=== PATIENT | female | born 1965 | race Caucasian/White ===

== ENCOUNTER → 2021-10-16 | Outpatient (CLI) | payer BC ==
--- NOTE | 2021-10-16 16:41 | CONS ---
CONSULTATION DATE OF SERVICE: 10/16/2021 This 55-year-old lady has been evaluated in [facility] for obstructive sleep apnea- hypopnea syndrome. HISTORY OF PRESENT ILLNESS/SLEEP-WAKE EVALUATION: The patient has had a history of obstructive sleep apnea for 12 years. She has continued treatment with her CPAP every night for the whole night; has episodes of significant bradycardia. Her sleep schedule is from 9 p.m. to 5:30 a.m. on weekdays and from 10 p.m. to 8 a.m. on weekends. Sometimes she has problems with falling asleep. No TV in bedroom, though. She sleeps on the side position. She wakes up from sleep up to 3 times with up to 2 episodes of nocturia. No history of hypnagogic hallucinations, sleep paralysis or cataplexy. She may wake up from sleep with a dry mouth and palpitations. [place] Sleepiness Scale is 7. The patient may take a nap on weekends around 2-3 p.m. but usually does not feel refreshed after a nap. She may see vivid dreams during naps. I checked the patient's CPAP unit. Pressure is 7 cm of water. Usage is 30/30 nights for more than 4 hours, average 7 hours per night. Zero leak. The patient is using small Rosalie Luna nasal pillows. Apnea-hypopnea index 2.8. PAST MEDICAL HISTORY: Positive for hyperlipidemia, allergies, acid reflux. PAST SURGICAL HISTORY: Cholecystectomy. CURRENT MEDICATIONS: Atorvastatin 20 mg once a day, Zyrtec, Flonase, ibuprofen, Motrin. SOCIAL HISTORY: Positive for smoking in the past. Alcohol consumption occasional. PHYSICAL EXAMINATION: GENERAL: Pleasant patient is in no distress. VITAL SIGNS: BP 136/84, HR 56, RR 15, height 5 feet 6 inches, weight 239.2, body mass index 38.5, temperature 97.1, oxygen saturation at room air 97%. HEENT: PERRLA, EOMI, evaluation of oropharynx showed tongue protrudes midline. Low position of soft palate; Mallampati III. NECK: Supple, no JVD. Thyroid is not palpable. LUNGS: Clear to percussion and to auscultation. Good air exchange. No wheezing or rhonchi. HEART: S1, S2 regular. No murmurs, gallops, or rubs. ABDOMEN: Soft and nontender. Bowel sounds are present. No organomegaly appreciated. EXTREMITIES: No clubbing or cyanosis. REAL ESTATE BROKER: Awake, alert, and oriented X3. Cranial nerves 2 to 7 intact. There is no fasciculation or atrophy. noted. No focal deficits observed. FAMILY HISTORY: Father had stroke, glaucoma, during sleep. IMPRESSION: 1. Obstructive sleep apnea-hypopnea syndrome. Patient continues to use her CPAP equipment every night. The machine is very old. Normal respiration on CPAP. Low position of soft palate, Mallampati III. Obstructive sleep apnea-hypopnea syndrome was documented in another institution. We do not have information about those sleep studies, which is necessary for her to get supplies and replacement of her CPAP unit. 1. Obesity. BMI 38.5. 2. History of bradycardia. 3. Hyperlipidemia. 4. Allergies. 5. Status post cholecystectomy. 6. Acid reflux. PLAN: 1. Home sleep apnea test for re-evaluation of breathing during sleep now to get confirmation of obstructive sleep apnea-hypopnea syndrome because again, results of previous studies are not available. 2. Replacement of CPAP unit with automatic machine and small Rosalie Luna nasal pillow mask. 3. Losing weight. 4. Sleep hygiene with regular time in bed for at least 7-1/2 to 8 hours. 5. No driving if feeling sleepiness. Thank you very much for allowing me to participate in the management of your patient. Sincerely, Luis Nolan MD, PhD, FAASM Diplomat of [place] [employer] Sleep Medicine Board of [place] [employer] Nocturnist of [facility] [place] MMODL / IJN: [id number] /
== END ==
LOC: SLEEP 13:39
PROVIDERS: ATTEND Internal Medicine
DX: G47.33 Obstructive sleep apnea (adult) (pediatric) (principal); E66.9 Obesity, unspecified; E78.5 Hyperlipidemia, unspecified; K21.9 Gastro-esophageal reflux disease without esophagitis; T78.40XA Allergy, unspecified, initial encounter; Z68.38 Body mass index [BMI] 38.0-38.9, adult; Z87.898 Personal history of other specified conditions; Z90.49 Acquired absence of other specified parts of digestive tract; Z99.89 Dependence on other enabling machines and devices; Z88.5 Allergy status to narcotic agent; Z87.891 Personal history of nicotine dependence; Z79.899 Other long term (current) drug therapy
CPT/HCPCS: 99202

== ENCOUNTER → 2022-04-04 | Outpatient (CLI) | payer BC ==
--- NOTE | 2022-04-04 13:45 | P.PN ---
Subjective DATE: 04/04/2022 FOLLOW UP VISIT. Patient with obstructive sleep apnea hypopnea syndrome return to sleep center for follow-up visit. Recently patient had sleep study which documented obstructive sleep apnea hypopnea syndrome. Patient received new PAP unit and today is first visit after treatment using new CPAP unit was started. Patient was able to use PAP equipment every night for the whole night. The patient does not have significant problems with the mask, PAP pressure and humidification. [place] sleepiness scale is for. I checked information from PAP unit. PAP unit pressure 5-15, average 9.3 cm H2O. Usage is 97 % for more then 4 hours, average 6.4 hours per night. Leak is 7.2 l/m, which is in acceptable range. Apnea Hypopnea Index is 1.9, which is normal. MEDICATIONS:1. Atorvastatin 20 mg once a day 2. Zyrtec 3. Flonase 4. Ibuprofen During physical exam: GENERAL: A pleasant patient without any distress. VITAL SIGNS: BP 149/74, HR 60, RR 16 , weight 233.4, temperature 97, oxygen saturation at room air 99 . HEENT: PERRLA, EOMI.low position of soft palate, Mallapati 3 . NECK: Supple. No JVD. LUNGS: Clear to percussion and to auscultation. Good air exchange. No wheezing or rhonchi. HEART: S1, S2 regular. ABDOMEN: Soft and nontender. Slightly obese EXTREMITIES: No clubbing or cyanosis. FIREPROOF DOOR MAKER: Awake, alert, and oriented x3. No focal deficit. Impressions: 1. Obstructive sleep apnea-hypopnea syndrome. Patient demonstrated great compliance with treatment, benefiting from treatment. 2. Obesity. 3. History of bradycardia. 4. Hyperlipidemia. 5. ALLERGIES. 6. Status post cholecystectomy. 7. Acid reflux. Plan: 1. Continue using PAP equipment every night for the whole night. 2. To change air filter at least 1-2 times per month. 3. PAP unit should stay lower then position of the head. 4. Advised patient to remove all remaining water from humidifier canister daily and make it dry after each usage. Refill canister with fresh distilled water before each usage. 5. Sleep hygiene with regular time in bed for at least 8 hours. 6. Precautions related to driving. No driving if feel any sleepiness. 7. I will maintain prescription for PAP supplies including mask, tube, filters. 8. Follow up visit in 6 months or earlier if patient has any problems. 9. Watching weight. Thank you very much for allowing me to participate in the management of your patient. Luis Nolan MD, PhD, FAASM. Diplomat of [place] [employer], Sleep Medicine Board by [place] [employer] Lehr Attendant of [facility] [place]
== END ==
LOC: SLEEP 13:08
PROVIDERS: ATTEND Internal Medicine
DX: G47.33 Obstructive sleep apnea (adult) (pediatric) (principal); E66.9 Obesity, unspecified; E78.5 Hyperlipidemia, unspecified; Z90.49 Acquired absence of other specified parts of digestive tract; K21.9 Gastro-esophageal reflux disease without esophagitis; T78.40XA Allergy, unspecified, initial encounter; Z86.79 Personal history of other diseases of the circulatory system; Z99.89 Dependence on other enabling machines and devices; Z88.5 Allergy status to narcotic agent; Z87.891 Personal history of nicotine dependence

== ENCOUNTER → 2022-10-17 | Outpatient (CLI) | payer BC ==
--- NOTE | 2022-10-17 14:32 | P.PN ---
Subjective DATE: [] FOLLOW UP VISIT. Patient with obstructive sleep apnea hypopnea syndrome return to sleep center for follow-up visit. Information from previous visit have been reviewed. Patient is using PAP equipment every night for the whole night, getting PAP supplies in time. The patient does not have significant problems with the mask, PAP unit and humidification. [place] sleepiness scale is 5, which is normal. I checked information from PAP unit and discussed it with patient. PAP unit pressure 5-15, average 9.7 cm H2O. Usage is 100 % for more then 4 hours, average 7.75 hours per night. Leak is 6.6 l/m, which is in acceptable range. Apnea Hypopnea Index is 2.1, which is normal. MEDICATIONS:1. Atorvastatin 20 mg once a day 2. Flonase 3. Ibuprofen During physical exam: GENERAL: A pleasant patient without any distress. VITAL SIGNS: BP 124/61, HR 50, RR 16 , weight 236, temperature 98.1, body mass index 38.0, oxygen saturation at room air 98 % . HEENT: PERRLA, EOMI.low position of soft palate, Mallapati 3 . NECK: Supple. No JVD. LUNGS: Clear to percussion and to auscultation. Good air exchange. No wheezing or rhonchi. HEART: S1, S2 regular. ABDOMEN: Soft and nontender. Slightly obese EXTREMITIES: No clubbing or cyanosis. METALLURGICAL SPECIALIST: Awake, alert, and oriented x3. No focal deficit. Impressions: 1. Obstructive sleep apnea-hypopnea syndrome. Patient demonstrated great compliance with treatment, benefiting from treatment. 2. Obesity body mass index 38. 3. Bradycardia. 4. ALLERGIES. 5. Hyperlipidemia. 6. Acid reflux. 7. Status post cholecystectomy. Plan: 1. Continue using PAP equipment every night for the whole night. 2. To change air filter at least 1-2 times per month. 3. PAP unit should stay lower then position of the head. 4. Advised patient to remove all remaining water from humidifier canister daily and make it dry after each usage. Refill canister with fresh distilled water before each usage. 5. Sleep hygiene with regular time in bed for at least 8 hours. 6. Precautions related to driving. No driving if feel any sleepiness. 7. I will maintain prescription for PAP supplies including mask, tube, filters. 8. Follow up visit in 6 months or earlier if patient has any problems. 9. Watching and losing weight. Thank you very much for allowing me to participate in the management of your patient. Luis Nolan MD, PhD, FAASM. Diplomat of [place] [employer] Medicine, Sleep Medicine Board by [place] [employer] Oyster Buyer of [facility] [place]
== END ==
LOC: SLEEP 13:52
PROVIDERS: ATTEND Internal Medicine
DX: G47.33 Obstructive sleep apnea (adult) (pediatric) (principal); E66.9 Obesity, unspecified; Z68.38 Body mass index [BMI] 38.0-38.9, adult; R00.1 Bradycardia, unspecified; E78.5 Hyperlipidemia, unspecified; K21.9 Gastro-esophageal reflux disease without esophagitis; Z90.49 Acquired absence of other specified parts of digestive tract; Z99.89 Dependence on other enabling machines and devices; Z88.5 Allergy status to narcotic agent; Z87.891 Personal history of nicotine dependence
CPT/HCPCS: 99212

== ENCOUNTER → 2023-07-10 | Outpatient (CLI) | payer BC ==
--- NOTE | 2023-07-10 15:58 | P.PN ---
Subjective DATE: 07/10/2023 FOLLOW UP VISIT. Patient with obstructive sleep apnea hypopnea syndrome return to sleep center for follow-up visit. Information from previous visit have been reviewed. Patient is using PAP equipment every night for the whole night, getting PAP supplies in time. The patient does not have significant problems with the mask, PAP unit and humidification. [place] sleepiness scale is 3, which is perfect. I checked information from PAP unit. PAP unit pressure 5-15, average 9.4 cm H2O. Usage is 97 % for more then 4 hours, average 7.25 hours per night. Leak is 11.8 l/m, which is in acceptable range. Apnea Hypopnea Index is 0.8, which is normal. MEDICATIONS:1. Zyrtec 2. Atorvastatin 40 mg once a day 3. Flonase 4. Triamteren/hydrochlorothiazide During physical exam: GENERAL: A pleasant patient without any distress. VITAL SIGNS: BP 144/84, HR 58, RR 18, weight 238.2, temperature 98.0, oxygen saturation at room air 96 % . HEENT: PERRLA, EOMI.low position of soft palate, Mallapati 3 . NECK: Supple. No JVD. LUNGS: Clear to percussion and to auscultation. Good air exchange. No wheezing or rhonchi. HEART: S1, S2 regular. ABDOMEN: Soft and nontender. Obese EXTREMITIES: No clubbing or cyanosis. PRESS SMITH HELPER: Awake, alert, and oriented x3. No focal deficit. Impressions: 1. Obstructive sleep apnea-hypopnea syndrome. Patient demonstrated great compliance with treatment, benefiting from treatment. 2. Obesity. 3. Hyperlipidemia. 4. History of ALLERGIES. 5. Acid reflux. 6. Status post cholecystectomy. Plan: 1. Continue using PAP equipment every night for the whole night. 2. To change air filter at least 1-2 times per month. 3. PAP unit should stay lower then position of the head. 4. Advised patient to remove all remaining water from humidifier canister daily and make it dry after each usage. Refill canister with fresh distilled water before each usage. 5. Sleep hygiene with regular time in bed for at least 8 hours. 6. Precautions related to driving. No driving if feel any sleepiness. 7. I will maintain prescription for PAP supplies including mask, tube, filters. 8. Watching and losing weight. 9. Follow up visit in 6 months or earlier if patient has any problems. Thank you very much for allowing me to participate in the management of your patient. Luis Nolan MD, PhD, FAASM. Diplomat of [place] [employer] Sleep Medicine, Sleep Medicine Board by [place] [employer] Metal Lather of [facility] [place]
== END ==
LOC: 3 N SLEEP 15:33
PROVIDERS: ATTEND Internal Medicine
DX: G47.33 Obstructive sleep apnea (adult) (pediatric) (principal); E66.9 Obesity, unspecified; E78.5 Hyperlipidemia, unspecified; K21.9 Gastro-esophageal reflux disease without esophagitis; Z79.899 Other long term (current) drug therapy; Z90.49 Acquired absence of other specified parts of digestive tract; Z98.890 Other specified postprocedural states; Z91.09 Other allergy status, other than to drugs and biological substances; Z99.89 Dependence on other enabling machines and devices; Z88.5 Allergy status to narcotic agent; Z87.891 Personal history of nicotine dependence
CPT/HCPCS: 99212

== ENCOUNTER → 2024-01-29 | Outpatient (CLI) | payer BC ==
[2024-01-29 15:43] VITALS: BP 157/86; PULSE 56; RESP 16; TEMP 98.3
--- NOTE | 2024-01-29 15:59 | P.PN ---
Subjective DATE: 01/29/2024 FOLLOW UP VISIT. Patient with obstructive sleep apnea hypopnea syndrome return to sleep center for follow-up visit. Information from previous visit have been reviewed. Patient is using PAP equipment every night for the whole night, getting PAP supplies in time. The patient does not have significant problems with the mask, PAP unit and humidification. [place] sleepiness scale is 6, which is normal. I checked information from PAP unit. PAP unit pressure 5-15, average 9.9 cm H2O. Usage is 100% for more then 4 hours, average 8 hours per night. Leak is 8.0 l/m, which is in acceptable range. Apnea Hypopnea Index is 1.3, which is normal. MEDICATIONS:1. Atorvastatin 40 mg once a day 2. 0 tach 3. Flonase 4. Triamterenhydrochlorothiazide During physical exam: GENERAL: A pleasant patient without any distress. VITAL SIGNS: Please see below, weight 242.6 pounds, BMI 40.2. HEENT: PERRLA, EOMI.low position of soft palate, Mallapati 3 . NECK: Supple. No JVD. LUNGS: Clear to percussion and to auscultation. Good air exchange. No wheezing or rhonchi. HEART: S1, S2 regular. ABDOMEN: Soft and nontender. Slightly obese EXTREMITIES: No clubbing or cyanosis. RESEARCH METHODOLOGIST: Awake, alert, and oriented x3. No focal deficit. Impressions: 1. Obstructive sleep apnea-hypopnea syndrome. Patient demonstrated great compliance with treatment, benefiting from treatment. 2. Obesity, BMI 40.2, patient increased weight on 4 pounds comparing with previous visit. 3. Hyperlipidemia. 4. Acid reflux . 5. Status post cholecystectomy. 6. History of allergies. Plan: 1. Continue using PAP equipment every night for the whole night. 2. To change air filter at least 1-2 times per month. 3. PAP unit should stay lower then position of the head. 4. Advised patient to remove all remaining water from humidifier canister daily and make it dry after each usage. Refill canister with fresh distilled water before each usage. 5. Sleep hygiene with regular time in bed for at least 8 hours. 6. Precautions related to driving. No driving if feel any sleepiness. 7. I will maintain prescription for PAP supplies including mask, tube, filters. 8. Follow up visit in 6 months or earlier if patient has any problems. 9. Watching and losing weight. Thank you very much for allowing me to participate in the management of your patient. Luis Nolan MD, PhD, FAASM. Diplomat of [place] [employer] Sleep Medicine, Sleep Medicine Board by [place] [employer] Medicine Penal Officer of [facility] [place] Objective - Vital Signs Vital signs: Vital Signs Temp 98.3 F 01/29/24 15:40 Pulse 56 L 01/29/24 15:40 Resp 16 01/29/24 15:40 BP 157/86 01/29/24 15:40 Pulse Ox 97 01/29/24 15:40 FiO2 Intake & Output 01/28/24 01/29/24 01/29/24 18:59 06:59 18:59 Weight 109.769 kg
== END ==
LOC: 3 N SLEEP 14:54
PROVIDERS: ATTEND Internal Medicine
DX: G47.33 Obstructive sleep apnea (adult) (pediatric) (principal); E66.9 Obesity, unspecified; E78.5 Hyperlipidemia, unspecified; K21.9 Gastro-esophageal reflux disease without esophagitis; Z90.49 Acquired absence of other specified parts of digestive tract; Z68.41 Body mass index [BMI] 40.0-44.9, adult; Z99.89 Dependence on other enabling machines and devices; Z91.09 Other allergy status, other than to drugs and biological substances; Z88.5 Allergy status to narcotic agent; Z87.891 Personal history of nicotine dependence
CPT/HCPCS: 99212

== ENCOUNTER → 2024-09-02 | Outpatient (CLI) | payer BC ==
[2024-09-02 15:40] VITALS: BP 123/63; PULSE 57; RESP 16; TEMP 98.2
--- NOTE | 2024-09-02 15:53 | P.PROGSL ---
Subjective DATE: 09/02/2024 FOLLOW UP VISIT. Patient with obstructive sleep apnea hypopnea syndrome return to sleep center for follow-up visit. Information from previous visit have been reviewed. Patient is using PAP equipment every night for the whole night, getting PAP supplies in time. The patient does not have significant problems with the mask, PAP unit and humidification. [place] sleepiness scale is 2, which is normal. I checked information from PAP unit. PAP unit pressure 5-15, average 8.4 cm H2O. Usage is 100% for more then 4 hours, average 8.5 hours per night. Leak is 11 l/m, which is in acceptable range. Apnea Hypopnea Index is 1.0, which is normal. MEDICATIONS have been reviewed, please see below. During physical exam: GENERAL: A pleasant patient without any distress. VITAL SIGNS: Please see below, weight is 205.2 lbs. HEENT: PERRLA, EOMI.low position of soft palate, Mallapati 3. NECK: Supple. No JVD. LUNGS: Clear to percussion and to auscultation. Good air exchange. No wheezing or rhonchi. HEART: S1, S2 regular. ABDOMEN: Soft and nontender.[] EXTREMITIES: No clubbing or cyanosis. BODY AND FENDER WORKER: Awake, alert, and oriented x3. No focal deficit. Impressions: 1. Obstructive sleep apnea-hypopnea syndrome. Patient demonstrated great compliance with treatment, benefiting from treatment. 2. Mild obesity, BMI 33.8, patient lost 37 pounds since previous visit. 3. Hyperlipidemia. 4. Acid reflux. 5. Allergies. 6. Status post cholecystectomy. Plan: 1. Continue using PAP equipment every night for the whole night. 2. Sleep hygiene with regular time in bed for at least 7.5-8 hours 3. PAP unit should stay lower then position of the head. 4. Advised patient to remove all remaining water from humidifier canister daily and make it dry after each usage. Refill canister with fresh distilled water before each usage. 5. Watching and continue losing weight. 6. Precautions related to driving. No driving if feel any sleepiness. 7. I will maintain prescription for PAP supplies including mask, tube, filters. 8. Follow up visit in 8 months or earlier if patient has any problems. Thank you very much for allowing me to participate in the management of your patient. Luis Nolan MD, PhD, FAASM. Diplomat of [place] [employer] Sleep Medicine, Sleep Medicine Board by [place] [employer] Medicine Director Digital Marketing of [facility] [place] cc: Brenda Ryan MD Objective - Vital Signs Vital Signs: Vital Signs Temp 98.2 F 09/02/24 15:39 Pulse 57 L 09/02/24 15:39 Resp 16 09/02/24 15:39 BP 123/63 09/02/24 15:39 Pulse Ox 99 09/02/24 15:39 FiO2 Intake & Output 09/01/24 09/02/24 09/02/24 18:59 06:59 18:59 Weight 93.043 kg Home Medications: Home Medications Medication Instructions Recorded Confirmed Type Ascorbic Acid [Vitamin C] 1,000 mg PO HS 08/27/17 01/29/24 History Cetirizine HCl [Zyrtec] 10 mg PO DAILY PRN 08/27/17 01/29/24 History Cholecalciferol (Vitamin D3) 2,000 unit PO DAILY 08/27/17 01/29/24 History [Vitamin D3] Ibuprofen [Advil] 400 mg PO DAILY PRN 08/27/17 01/29/24 History Vitamin B Complex 1 each PO DAILY 08/27/17 01/29/24 History Atorvastatin [Lipitor] 40 mg PO DAILY 01/29/24 01/29/24 History
== END ==
LOC: 3 N SLEEP 15:09
PROVIDERS: ATTEND Internal Medicine
DX: G47.33 Obstructive sleep apnea (adult) (pediatric) (principal); E66.9 Obesity, unspecified; E78.5 Hyperlipidemia, unspecified; K21.9 Gastro-esophageal reflux disease without esophagitis; Z90.49 Acquired absence of other specified parts of digestive tract; Z99.89 Dependence on other enabling machines and devices; Z68.33 Body mass index [BMI] 33.0-33.9, adult; Z88.5 Allergy status to narcotic agent; Z87.891 Personal history of nicotine dependence
CPT/HCPCS: 99212